=== PATIENT | female | born 1990 | race Caucasian/White ===

== ENCOUNTER 2021-05-08 16:11 | Emergency (ER) | payer OTHER ==
[2021-05-08 17:08] LABS: HEMOGLOBIN 13.6 gm/dl (12.3-15.3); RED BLOOD COUNT 4.66 M/UL (4.00-5.10); WHITE BLOOD COUNT 9.2 K/UL (4.5-11.0)
[2021-05-08 17:27] LABS: BUN/CREATININE RATIO 17 (0-10)
[2021-05-08] MEDS ORDERED: REGLAN10 MG PO (21:57)
[2021-05-08] MEDS ORDERED: BENTYL 20MG TAB20 MG PO (21:57)
== END 2021-05-09 01:00 | disposition home or self-care (01) ==
LOC: ER1 16:11
PROVIDERS: Physician Assistant
DX: N93.8 Other specified abnormal uterine and vaginal bleeding (principal); Z32.01 Encounter for pregnancy test, result positive
CPT/HCPCS: 76817; 80053; 81001; 84702; 84703; 85025; 86850; 86900; 86901; 93005; 96374; 99284; J2405; J2790